=== PATIENT | male | born 1950 | race Caucasian/White ===

== ENCOUNTER 2020-06-08 15:43 | Observation (INO) ==
[2020-06-08] MEDS ORDERED: HYDROcodone/ACETAMIN 5/325 mg TAB PO ONE (16:54)
[2020-06-08] MEDS ORDERED: Ondansetron 4 mg VIAL 2 MG/ML 2 ml VIAL IV ONE (16:54)
[2020-06-08 17:20] LABS: ABS Basophils 0.1 10^3/ul (0-0.2); ABS Lymphocytes 0.7 10^3/ul (1.0-4.8); ABS Neutrophils 12.9 10^3/ul (1.5-7.7); Eosinophil % 0.1 %; Hematocrit 47 % (42-52); Hemoglobin 15.9 g/dL (14.0-18.0); Lymphocyte % 4.5 %; Mean Corpuscular HGB Conc 34 g/dL (31-36); Mean Corpuscular Hemoglobin 31 pg (27-31); Mean Corpuscular Volume 91 fL (80-94); Mean Platelet Volume 7.2 fL (7.4-10.4); Platelet Count 338 10^3/uL (150-450); Red Blood Count 5.17 10^6 /uL (4.18-5.48); Red Cell Distribution Width 14 % (10-15); White Blood Count 14.6 10^3/uL (3.5-10.8)
[2020-06-08 17:34] LABS: Albumin 4.5 g/dL (3.2-5.2); Albumin/Globulin Ratio 1.8 (1-3); BUN/Creatinine Ratio 15.8 (8-20); C Reactive Protein 17.26 mg/L (<8.01); Calcium 9.4 mg/dL (8.6-10.3); EGFR African American 94.6 (>60); EGFR Non-African American 78.2 (>60); Globulin 2.5 g/dL (2-4); Potassium 3.6 mmol/L (3.5-5.0); Total Bilirubin 0.8 mg/dL (0.2-1.0)
[2020-06-08] MEDS ORDERED: NS 0.9% 1000 ml BAG 1,000 ML IV ONE (18:51)
[2020-06-08] MEDS ORDERED: Morphine 4 MG/ML VIAL (1 ml) IV ONE (18:56)
[2020-06-08] MEDS ORDERED: HYDROmorphone 1 MG/1 ML SYRINGE IV SLOW PU PRN (19:38)
[2020-06-08] MEDS ORDERED: ZOSYN 3.375 GM x ONE DOSE over 30 miuntes IV (20:00)
[2020-06-08] MEDS ORDERED: Zosyn per Pharmacy NOTE FOLLOW UP PRN (23:18)
[2020-06-08] MEDS: D5W 1/2 NS KCl 20 meq 1000 ml 1,000 ML IV SCH (23:41)
[2020-06-09] MEDS: Piperacillin/Tazobactam VIAL 3.375 GM in NS 0.9% 100 ml BAG 100 ML IVPB SCH ×2 (02:09→10:39)
[2020-06-09] MEDS ORDERED: Ondansetron 4 mg VIAL 2 MG/ML 2 ml VIAL IV PRN (08:26)
[2020-06-09 09:51] LABS: Urine Appearance Clear; Urine Bilirubin Negative (Negative); Urine Blood 1+ (Negative); Urine Color Yellow; Urine Glucose Negative (Negative); Urine Ketones Negative (Negative); Urine Nitrite Negative (Negative); Urine Protein Negative (Negative); Urine Specific Gravity 1.009 (1.010-1.030); Urine Urobilinogen Negative (Negative)
[2020-06-09 09:54] LABS: Urine Bacteria Absent (Absent); Urine Red Blood Cell Trace(0-2/hpf) (Absent); Urine White Blood Cell Trace(0-5/hpf) (Absent)
[2020-06-09] MEDS: D5W 1/2 NS KCl 20 meq 1000 ml 1,000 ML IV SCH (10:37)
[2020-06-09 17:43] VITALS: BP 177/109
== END 2020-06-09 17:46 | disposition home or self-care (01) ==
LOC: SSU 15:43 → ED 15:43 → SSU 22:29
PROVIDERS: ADMIT Surgery; ATTEND Surgery